=== PATIENT | female | born 1995 | race Caucasian/White ===

== ENCOUNTER 2023-07-04 18:50 | Emergency (ER) | payer BC, MEDICAID, SELFPAY ==
--- NOTE | 2023-07-04 18:55 | ED.SKABFB ---
HPI - Skin/Abscess/Foreign Bdy General Chief complaint: Skin/Abscess/Foreign Body Stated complaint: insect bite Time Seen by Provider: 07/04/23 19:04 Source: patient, RN notes reviewed and old records reviewed Mode of arrival: ambulatory Limitations: no limitations History of Present Illness HPI narrative: 27-year-old female presents to the [facility] with complaints of an insect bite. Patient is autistic Mom reports they were at [facility] over the weekend, reports that she had a tick on her ear and was concerned that the head might still be in period of the last couple of days developed a red raised warm for rash. Mom denies any fevers. Patient unable to verbalize concerns Related Data Allergies Allergy/AdvReac Type Severity Reaction Status Date / Time codeine Allergy Unknown Vomiting Verified 07/04/23 19:05 divalproex sodium Allergy Unknown Unknown Verified 07/04/23 19:05 gluten AdvReac Unknown Unknown Verified 07/04/23 19:05 Dairy AdvReac Intermediate GI UPSET Uncoded 07/04/23 19:05 Review of Systems Review of Systems: All systems reviewed & are unremarkable except as noted in HPI and below Constitutional: Constitutional: Reports no additional constitutional complaints Eyes: Eyes: Reports no additional eye complaints ENT: Reports system reviewed and no additional complaints, except as documented Cardiovascular: Cardiovascular: Reports no additional cardiovascular complaints, Denies chest pain and Denies dyspnea Respiratory: Respiratory: Reports no additional respiratory complaints, Denies chest congestion, Denies cough and Denies dyspnea Gastrointestinal: Gastrointestinal: Reports no additional gastrointestinal complaints, Denies abdominal pain, Denies nausea and Denies vomiting Musculoskeletal: Musculoskeletal: Reports no additional musculoskeletal complaints Integumentary/Breasts: Skin/Breast: Reports as per HPI and Reports rash Neurologic: Reports system reviewed and no additional complaints, except as documented Psychiatric: Psychiatric: Reports no additional psychiatric complaints Allergic/Immunologic: Allergic/Immunologic: Reports no additional allergic/immunologic complaints PMF Past Medical History Medical History (Updated 07/05/23 @ 18:50 by Nancy Raman APRN) Autism Celiac disease Chicken pox Measles 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 There is no relevant family history pertinent to the patient complaint. Exam Const: General: cooperative, healthy appearing, comfortable, no acute distress, well developed, alert and well nourished Nutritional Appearance: well nourished Orientation/consciousness: patient oriented x3 Limitations: no limitations HENMT: Head: normal to inspection Ears: hearing grossly normal bilaterally and external ears normal Face/Nose/Sinus: Normal external nose present, Normal nares present, Normal nasal mucous membranes and turbinates present, normal facial exam and face symmetric Face and sinus: normal facial exam and face symmetric Eyes: General: appearance normal, both eyes and all related structures Alignment and Position: alignment normal Periorbital: periorbital findings normal Pupils: Equal, round and reactive pupils present EOM: EOMs intact bilaterally Neck: Neck: normal visual inspection, full ROM, no lymphadenopathy and no meningeal signs Chest: Chest
[2023-07-04 19:04] VITALS: BP 115/68; PULSE 76; RESP 16; TEMP 36.6; O2SAT 100
[2023-07-04 19:05] VITALS: BP 115/68; PULSE 76; RESP 16; TEMP 36.6; O2SAT 100
== END 2023-07-04 19:26 | disposition home or self-care (01) ==
PROVIDERS: Emergency Provider Nurse Practitioner; PCP Internal Medicine
DX: S40.861A Insect bite (nonvenomous) of right upper arm, initial encounter (principal); L08.9 Local infection of the skin and subcutaneous tissue, unspecified; W57.XXXA Bitten or stung by nonvenomous insect and other nonvenomous arthropods, initial encounter; F84.0 Autistic disorder; K90.0 Celiac disease
CPT/HCPCS: 99213; G0463